=== PATIENT | male | born 1945 | race Two or more races ===

== ENCOUNTER 2019-03-25 07:50 | Outpatient (CLI) | payer OTHER ==
[~2019-03-25 07:50] MED LIST: DEXAMETHASONE4 MG; FLEXERIL10 MG; TRAUMEEL
== END 2019-03-25 07:52 | disposition home or self-care (01) ==
LOC: RAD 07:50
DX: M46.47 Discitis, unspecified, lumbosacral region (principal)

== ENCOUNTER 2024-03-09 10:15 | Outpatient (CLI) | payer OTHER | END 2024-03-09 10:16 | disposition home or self-care (01) | LOC: NUCLEAR 10:15 | PROVIDERS: ATTEND Psychiatry & Neurology Clinical Neurophysiology | DX: G30.1 Alzheimer's disease with late onset (principal) | CPT/HCPCS: 78803; A9557 ==